=== PATIENT | male | born 1965 | race Caucasian/White ===

== ENCOUNTER 2021-08-16 09:33 | Inpatient (IN) | payer MEDICAID, OTHER ==
[2021-08-16] MEDS ORDERED: Morphine 4 MG/ML Syringe IVPUSH ONE ×2 (10:27→11:58)
[2021-08-16] MEDS ORDERED: Ondansetron 4 MG/2 ML SDV IVPUSH ONE (10:27)
[2021-08-16] MEDS ORDERED: Sodium Chloride 0.9% 1,000 ML IV ONE (11:00)
[2021-08-16] MEDS ORDERED: Iopamidol 612 MG/ML 100 ML Bottle IVPUSH ONE (11:48)
[2021-08-16] MEDS ORDERED: Sodium Chloride 0.9% 10 ML Syringe FLUSH PRN (11:48)
[2021-08-16] MEDS ORDERED: Ketorolac 15 MG/ML SDV IVPUSH ONE (13:03)
[2021-08-16] MEDS ORDERED: Metoclopramide 10 MG/2 ML SDV IVPUSH ONE (13:10)
[2021-08-16] MEDS ORDERED: Sodium Chloride 0.9% 1,000 ML IV SCH (13:30)
[2021-08-16] MEDS ORDERED: Ondansetron 4 MG/2 ML SDV IV PRN (14:05)
[2021-08-16] MEDS ORDERED: HYDROmorphone 0.5 MG/0.5 ML Syringe IVPUSH ONE (14:05)
[2021-08-16] MEDS ORDERED: HYDROmorphone 0.5 MG/0.5 ML Syringe IVPUSH PRN (14:05)
[2021-08-16] MEDS: Famotidine 20 MG/2 ML SDV IVPUSH SCH (16:41)
[2021-08-16] MEDS ORDERED: Levofloxacin/Dextrose 5%-Water 500 MG in Premix Bag 1 BAG IV SCH (18:00)
[2021-08-16] MEDS: HYDROmorphone 1 MG/ML Syringe IVPUSH PRN ×2 (18:45→20:47)
[2021-08-16] MEDS: Sodium Chloride 0.9% 1,000 ML IV SCH (18:47)
[2021-08-16] MEDS: Levofloxacin/Dextrose 5%-Water 500 MG in Premix Bag 1 BAG IV SCH (20:37)
[2021-08-17] MEDS: HYDROmorphone 1 MG/ML Syringe IVPUSH PRN ×8 (01:15→20:05)
[2021-08-17] MEDS: Sodium Chloride 0.9% 1,000 ML IV SCH ×4 (02:48→23:44)
[2021-08-17] MEDS: Famotidine 20 MG/2 ML SDV IVPUSH SCH (08:02)
[2021-08-17] MEDS: Enoxaparin 30 MG/0.3 ML Syringe SUBCUT SCH (08:02)
[2021-08-17] MEDS ORDERED: Calcium Gluconate 10% 1 GM/10 ML SDV IVPUSH ONE (09:28)
[2021-08-17] MEDS: Levofloxacin/Dextrose 5%-Water 500 MG in Premix Bag 1 BAG IV SCH ×2 (19:55→21:47)
[2021-08-18] MEDS: HYDROmorphone 1 MG/ML Syringe IVPUSH PRN ×7 (00:56→20:16)
[2021-08-18] MEDS: Sodium Chloride 0.9% 1,000 ML IV SCH ×3 (06:23→20:02)
[2021-08-18] MEDS ORDERED: Calcium Gluconate 10% 1 GM/10 ML SDV IVPUSH ONE (06:47)
[2021-08-18] MEDS: Enoxaparin 30 MG/0.3 ML Syringe SUBCUT SCH (08:04)
[2021-08-18] MEDS: Famotidine 20 MG/2 ML SDV IVPUSH SCH (08:08)
[2021-08-18] MEDS ORDERED: Sodium Chloride 0.9% 10 ML Syringe FLUSH PRN (09:55)
[2021-08-18] MEDS ORDERED: Iopamidol 612 MG/ML 100 ML Bottle IVPUSH ONE (09:55)
[2021-08-18] MEDS ORDERED: Diatrizoate Meglumine/Diatrizoate Sodium 37% 120 ML Bottle PO ONE (10:07)
[2021-08-18] MEDS: metroNIDAZOLE/Normal Saline 500 MG in Premix Bag 1 BAG IV SCH ×2 (15:46→23:03)
[2021-08-18] MEDS ORDERED: Aluminum Hydroxide/Magnesium Hydroxide/Simethicone Susp 30 ML Cup PO ONE (17:05)
[2021-08-18] MEDS: Levofloxacin/Dextrose 5%-Water 500 MG in Premix Bag 1 BAG IV SCH (20:15)
[2021-08-19] MEDS: HYDROmorphone 1 MG/ML Syringe IVPUSH PRN ×3 (00:28→08:55)
[2021-08-19] MEDS: Sodium Chloride 0.9% 1,000 ML IV SCH (02:40)
[2021-08-19] MEDS: metroNIDAZOLE/Normal Saline 500 MG in Premix Bag 1 BAG IV SCH ×3 (05:59→23:16)
[2021-08-19] MEDS ORDERED: Calcium Gluconate 10% 1 GM/10 ML SDV IVPUSH ONE (06:39)
[2021-08-19] MEDS: Famotidine 20 MG/2 ML SDV IVPUSH SCH (08:39)
[2021-08-19] MEDS: Enoxaparin 30 MG/0.3 ML Syringe SUBCUT SCH (08:40)
[2021-08-19] MEDS: Lactated Ringers 1,000 ML IV SCH ×3 (08:45→23:23)
[2021-08-19] MEDS: Potassium Chloride 10 MEQ in Premix Bag 1 BAG IV SCH ×4 (08:46→12:46)
[2021-08-19] MEDS ORDERED: diphenhydrAMINE 50 MG/ML SDV IVPUSH PRN (12:41)
[2021-08-19] MEDS ORDERED: Naloxone 0.4 MG/ML SDV IVPUSH PRN (12:41)
[2021-08-19] MEDS ORDERED: diphenhydrAMINE 25 MG Cap PO PRN (12:41)
[2021-08-19] MEDS ORDERED: Aluminum Hydroxide/Magnesium Hydroxide/Simethicone Susp 30 ML Cup PO ONE (13:00)
[2021-08-19] MEDS: Nicotine 14 MG/24 Hr Patch TRDERM SCH (13:10)
[2021-08-19] MEDS: HYDROmorphone/Normal Saline 6 MG/30 ML PCA Vial IV PRN ×2 (13:44→21:50)
[2021-08-19] MEDS: Levofloxacin/Dextrose 5%-Water 500 MG in Premix Bag 1 BAG IV SCH (21:11)
[2021-08-19] MEDS: Ondansetron 4 MG/2 ML SDV IVPUSH PRN (22:06)
[2021-08-20] MEDS: LORazepam 2 MG/ML SDV IV PRN ×2 (02:53→14:59)
[2021-08-20] MEDS: Ondansetron 4 MG/2 ML SDV IVPUSH PRN ×3 (04:02→20:34)
[2021-08-20] MEDS: Lactated Ringers 1,000 ML IV SCH ×2 (05:20→13:14)
[2021-08-20] MEDS: metroNIDAZOLE/Normal Saline 500 MG in Premix Bag 1 BAG IV SCH ×3 (06:47→23:04)
[2021-08-20] MEDS: Nicotine 14 MG/24 Hr Patch TRDERM SCH (10:15)
[2021-08-20] MEDS: Famotidine 20 MG/2 ML SDV IVPUSH SCH (10:15)
[2021-08-20] MEDS: Enoxaparin 30 MG/0.3 ML Syringe SUBCUT SCH (10:19)
[2021-08-20] MEDS ORDERED: LORazepam 2 MG/ML SDV IVPUSH ONE (14:45)
[2021-08-20] MEDS: Promethazine 25 MG Tab PO PRN ×2 (14:59→23:10)
[2021-08-20] MEDS: Potassium Chloride 10 MEQ in Premix Bag 1 BAG IV SCH ×4 (15:46→19:05)
[2021-08-20] MEDS ORDERED: LORazepam 2 MG/ML SDV IV ONE (17:00)
[2021-08-20] MEDS: Levofloxacin/Dextrose 5%-Water 500 MG in Premix Bag 1 BAG IV SCH (20:34)
[2021-08-21] MEDS: Lactated Ringers 1,000 ML IV SCH ×4 (00:33→19:59)
[2021-08-21] MEDS: HYDROmorphone/Normal Saline 6 MG/30 ML PCA Vial IV PRN ×2 (01:24→19:49)
[2021-08-21] MEDS: Ondansetron 4 MG/2 ML SDV IVPUSH PRN (04:20)
[2021-08-21] MEDS: metroNIDAZOLE/Normal Saline 500 MG in Premix Bag 1 BAG IV SCH ×3 (06:46→22:54)
[2021-08-21] MEDS: Famotidine 20 MG/2 ML SDV IVPUSH SCH (08:11)
[2021-08-21] MEDS: Enoxaparin 30 MG/0.3 ML Syringe SUBCUT SCH (08:12)
[2021-08-21] MEDS: Nicotine 14 MG/24 Hr Patch TRDERM SCH (08:12)
[2021-08-21] MEDS ORDERED: Potassium Chloride 10 MEQ in Premix Bag 1 BAG IV SCH (08:45)
[2021-08-21] MEDS ORDERED: Calcium Gluconate 10% 1 GM/10 ML SDV IV ONE (09:00)
[2021-08-21] MEDS: Potassium Chloride 10 MEQ in Premix Bag 1 BAG IV SCH ×4 (10:20→15:00)
[2021-08-21] MEDS: Promethazine 25 MG Tab PO PRN (10:27)
[2021-08-21] MEDS ORDERED: Aluminum Hydroxide/Magnesium Hydroxide/Simethicone Susp 30 ML Cup PO ONE (16:30)
[2021-08-21] MEDS: Levofloxacin/Dextrose 5%-Water 500 MG in Premix Bag 1 BAG IV SCH (20:01)
[2021-08-22] MEDS: Ondansetron 4 MG/2 ML SDV IVPUSH PRN ×2 (03:50→23:20)
[2021-08-22] MEDS: Lactated Ringers 1,000 ML IV SCH ×3 (03:53→19:17)
[2021-08-22] MEDS: metroNIDAZOLE/Normal Saline 500 MG in Premix Bag 1 BAG IV SCH ×3 (06:34→23:14)
[2021-08-22] MEDS ORDERED: Iopamidol 612 MG/ML 100 ML Bottle IVPUSH ONE (07:45)
[2021-08-22] MEDS ORDERED: Sodium Chloride 0.9% 10 ML Syringe FLUSH PRN (07:45)
[2021-08-22] MEDS: Nicotine 14 MG/24 Hr Patch TRDERM SCH (09:54)
[2021-08-22] MEDS: Enoxaparin 30 MG/0.3 ML Syringe SUBCUT SCH (09:55)
[2021-08-22] MEDS: Potassium Chloride 10 MEQ in Premix Bag 1 BAG IV SCH ×8 (09:55→20:48)
[2021-08-22] MEDS: Famotidine 20 MG/2 ML SDV IVPUSH SCH ×3 (09:56→20:09)
[2021-08-22] MEDS: HYDROmorphone/Normal Saline 6 MG/30 ML PCA Vial IV PRN ×2 (13:03→23:16)
[2021-08-22] MEDS: Levofloxacin/Dextrose 5%-Water 500 MG in Premix Bag 1 BAG IV SCH (20:14)
[2021-08-23] MEDS: Lactated Ringers 1,000 ML IV SCH ×2 (02:25→09:05)
[2021-08-23 08:14] VITALS: BP 166/96; PULSE 79
[2021-08-23] MEDS: metroNIDAZOLE/Normal Saline 500 MG in Premix Bag 1 BAG IV SCH (08:14)
[2021-08-23] MEDS: Famotidine 20 MG/2 ML SDV IVPUSH SCH (08:15)
[2021-08-23] MEDS: Nicotine 14 MG/24 Hr Patch TRDERM SCH (08:15)
[2021-08-23] MEDS: Enoxaparin 30 MG/0.3 ML Syringe SUBCUT SCH (08:15)
[2021-08-23] MEDS ORDERED: HYDROmorphone 1 MG/ML Syringe IVPUSH PRN (09:20)
== END 2021-08-23 11:20 | DRG 871 ==
LOC: JD.ED 09:33 → JD.MS 13:24
PROVIDERS: ADMIT Pediatrics; ATTEND Pediatrics
DX: A41.9 Sepsis, unspecified organism (principal); K85.02 Idiopathic acute pancreatitis with infected necrosis; R65.20 Severe sepsis without septic shock; E83.51 Hypocalcemia; Z20.822 Contact with and (suspected) exposure to COVID-19; F10.11 Alcohol abuse, in remission; E87.6 Hypokalemia; Z79.2 Long term (current) use of antibiotics; Z79.899 Other long term (current) drug therapy; Z87.891 Personal history of nicotine dependence
CPT/HCPCS: 36415; 36600; 71045; 71045-26; 74018; 74018-26; 74019; 74019-26; 74177; 74177-26; 76705; 76705-26; 80053; 82803; 83605; 83690; 83735; 85025; 93005; 93010; 94761; 94762; 96374; 96375; 96376; 99221; 99232; 99239; 99285; 99285-25; A9270-GY; J0610; J1170; J1650; J1885; J1956; J2060; J2270; J2405; J2765; J3480; J3490; J7030; J7120; J8597; Q9963; Q9967; U0002

== ENCOUNTER 2023-03-31 23:49 | Emergency (ER) | payer BC, MEDICAID ==
[2023-04-01 00:22] LABS: HEMATOCRIT 44.5 % (42.0-52.0); HEMOGLOBIN 15.2 gm/dl (14.0-18.0); MEAN CORPUSCULAR HEMOGLOBIN 31.9 pg (28.0-32.0); MEAN CORPUSCULAR HGB CONC 34.2 g/dl (32.0-36.0); MEAN CORPUSCULAR VOLUME 93.5 fl (83.0-99.0); MEAN PLATELET VOLUME 9.2 fl (9.4-12.4); PLATELET COUNT,PLT 254 K/mm3 (150-400); RED BLOOD CELL COUNT 4.76 M/mm3 (4.52-5.90); WHITE BLOOD CELL COUNT,WBC 14.36 K/mm3 (3.9-11.3)
[2023-04-01 00:41] VITALS: BP 78/56; PULSE 69
[2023-04-01] MEDS ORDERED: Lactated Ringers 1,000 ML ONE (02:10)
[2023-04-01] MEDS ORDERED: Acetaminophen 325 MG Tab ONE (02:10)
[2023-04-01 06:34] LABS: ANION GAP 17.1 (5-15); BUN/CREATININE RATIO 12.3 (14-18); CALCIUM 8.9 mg/dL (8.5-10.1); CREATININE 1.3 mg/dL (0.7-1.3); EST CRCL DRUG DOSING (CG) 40.14 mL/min; POTASSIUM,K 4.1 mEq/L (3.5-5.1)
[2023-04-01 06:35] LABS: A/G RATIO 1.2 (1-2); BILIRUBIN TOTAL 0.5 mg/dL (0.2-1.0); MAGNESIUM 1.7 mg/dL (1.8-2.4); PROTEIN TOTAL,TP 7.4 g/dl (6.4-8.2)
[2023-04-01 06:39] LABS: BAND PERCENT MAN 0 % (0-10); BASOPHILS PERCENT MAN 0 (0.2-1.2); EOSINOPHILS PERCENT MAN 3 % (0.8-7.0); LYMPHOCYTES % ATYPICAL MANUAL 0 %; LYMPHOCYTES PERCENT MAN 26 % (20-40); MONOCYTES PERCENT MAN 5 % (2-10); PLATELET COUNT ESTIMATE ADEQUATE
== END 2023-04-01 03:55 | disposition home or self-care (01) ==
LOC: JD.ED 23:49
DX: R42 Dizziness and giddiness (principal); Z86.16 Personal history of COVID-19; Z88.0 Allergy status to penicillin; Z88.6 Allergy status to analgesic agent
CPT/HCPCS: 36415; 74176; 74176-26; 80053; 83605; 83735; 83880; 84484; 85007; 85027; 93010; 99283; 99285